=== PATIENT | male | born 1940 | race Caucasian/White ===

== ENCOUNTER 2020-07-09 14:11 | Outpatient (RCR) | payer MEDICARE, BC, SELFPAY | END 2020-08-07 23:59 | disposition home or self-care (01) | LOC: WOUND 14:11 | PROVIDERS: Family Provider Family Medicine; Visit Provider Thoracic Surgery (Cardiothoracic Vascular Surgery) | DX: L98.9 Disorder of the skin and subcutaneous tissue, unspecified (principal) | CPT/HCPCS: 99212 ==